=== PATIENT | male | born 1990 | race Caucasian/White ===

== ENCOUNTER 2017-11-14 10:19 | Emergency (ER) | payer OTHER, SELFPAY ==
[2017-11-14 10:21] VITALS: BP 142/95; PULSE 69; RESP 16; TEMP 36.3; O2SAT 100; BMI 35.9
--- NOTE | 2017-11-14 10:42 | CT_ITS ---
STUDY: CT ABDOMEN AND PELVIS WITH CONTRAST REASON FOR EXAM: Male, 27 years old. Epigastric abdomen pain radiating to left lower quadrant on several weeks. Hematemesis. RADIATION DOSAGE (If Supplied By Facility): CTDIvol = ( 16.77 ) mGy, DLP = ( 1292.11 ) mGycm TECHNIQUE: Transaxial images were obtained from the dome of the diaphragm to the symphysis pubis without oral contrast. 100 ml of Isovue 300 contrast was administered. Sagittal and coronal images were reconstructed. Individualized dose optimization techniques were used for this CT. COMPARISON: None. FINDINGS: The visualized lung bases are unremarkable. The visualized portions of the heart are within normal limits. Normal liver. Normal gallbladder and extrahepatic biliary system. Normal spleen. Normal pancreas. Normal bilateral adrenal glands. Normal right kidney. Normal left kidney. Normal visualized stomach. Normal small intestine. Multiple root of mesentery lymph nodes are evident for example on sequence 2, image 68. Normal colon. There is non-visualization of the appendix. There is no free fluid. There is no free air. Normal abdominal aorta. Normal inferior vena cava. Normal retroperitoneum. Normal urinary bladder. Normal abdominal wall. Normal osseous structures. CT/Abdomen/Pelvis WITH Contrast IMPRESSION: Multiple scattered mesenteric lymph nodes may represent mesenteric adenitis. Please note that early lymphoproliferative disorder can also present in this fashion. Therefore, recommend follow-up to document stability or resolution. Electronically Signed: Jose Cancino MD at 12:47 EDT , Service support ,
[2017-11-14 10:49] LABS: Absolute Lymphocyte Count 1.68 X10^3/ul (0.83-4.51); Absolute Neutrophil Count 2.4 X10^3/uL (2.0-7.7); Basophil# 0.01 X10^3/uL; Basophil% 0.2 % (0-1); Eosinophil# 0.08 X10^3/uL; Eosinophils% 1.7 % (0-5); Hematocrit 43.5 % (40-54); Hemoglobin 14.3 g/dl (13.0-16.5); Lymphocyte # 1.68 X10^3/ul (4.0); Lymphocyte % 35.7 % (19-41); Mean Corp Hgb Conc 32.9 g/gl (32-36); Mean Corpuscular Volume 88.2 fL (80-94); Mean Platelet Vol. 10.5 fl (6.2-12.0); Monocyte# 0.54 X10^3/uL; Monocyte% 11.5 % (0-10); Neutrophil # 2.39 X10^3/uL (2.7-7.7); Neutrophil % 50.9 % (47-70); Platelet Count 190 K/mm3 (150-450); RBC Distribution Width CV 12.7 % (11.6-14.6); RBC Distribution Width SD 40.3 fl (35.1-43.9); Red Blood Count 4.93 M/mm3 (4.6-6.2); White Blood Count 4.7 K/mm3 (4.4-11.0)
[2017-11-14 10:50] LABS: POSITIVE COUNT NO; POSITIVE DIFFERENTIAL NO; POSITIVE MORPHOLOGY NO
[2017-11-14 11:03] LABS: ALB/GLOB Ratio 1.1 RATIO (0.9-2.4); AST(SGOT) 27 U/L (15-37); Alanine Aminotransfer ALT/SGPT 44 U/L (16-61); Albumin, Serum 3.7 g/dL (3.2-5.0); Alkaline Phosphatase 53 U/L (45-117); Anion Gap 4 (5-15); BUN 9 mg/dL (7-18); BUN/Creat Ratio 9.9 RATIO (10-20); Calcium,Total 8.6 mg/dL (8.5-10.1); Chloride 104 mmol/L (98-107); Creatinine, Serum 0.91 mg/dL (0.70-1.30); EST Glomerular Filtration Rate 105 mL/min (>60); Est Glom Filt Rate - Afr Amer 127 mL/min (>60); Estimated Creatinine Clearance 124.79 ml/min; Globulin 3.3 g/dL (2.2-4.2); Glucose 87 mg/dL (74-106); Lipase 98 U/L (73-393); Potassium 3.9 mmol/L (3.5-5.1); Sodium Level 138 mmol/L (136-145)
[2017-11-14] MEDS: 0.9% Normal Saline 1,000 ML 125 ML IV (11:04)
[2017-11-14 11:23] LABS: Bacteria 0 SEEN /hpf (None Seen); Mucous, Urine 0 SEEN /hpf (<or=2+); Red Blood Cells-Urine 0 SEEN /hpf (0-5); Squamous Epithelial Cells - UA 0 SEEN /hpf (0-5)
[2017-11-14 11:24] LABS: Color, Urine Yellow (Yellow); Glucose, Dipstick Normal (Normal); Ketone-Dipstick Negative (Negative); Leukocyte Esterase-Dipstick 25 /ul (Negative); Nitrite-Dipstick Negative (Negative); Occult Blood-Urine Negative /ul (Negative); Protein-Dipstick Negative (Negative); Urine Bilirubin Dipstick Negative (Negative); Urine Clarity Clear (Clear); Urine Urobilinogen Normal (Normal)
[2017-11-14 11:30] LABS: White Blood Cells 0-5 SEEN /hpf (0-5)
--- NOTE | 2017-11-14 13:06 | ED.DCSUM_ITS ---
- ER Visit Summary Date of Service: 11/14/17 Chief Complaint: [Abdominal pain presents with abdominal pain that started several weeks ago.] History of Present Illness: The patient is a 27 M [patient states that he has had upper abdominal pain since bending over at one point and feeling a pop in his upper abdomen. Patient several days later had an episode of emesis where he had bright red blood noted with it and it was associated with abdominal distention. Patient states that he had nausea but no vomiting. He denies any diarrhea. He denies any blood in his stool or black tarry stool. Patient states he has not had much of an appetite. 2 days ago patient noticed what looked like dark urine he was not sure if it was blood. Patient continues to have low-grade upper abdominal pain. Patient rates his pain a 4 out of 10.] Physical Examination: HEENT-PERRLA, EOMI. Cranial nerves II through XII grossly intact. TMs clear. Mucous membranes moist. No adenopathy. Cardiovascular-regular rate and rhythm without murmur or ectopy Lungs-clear to auscultation, chest wall stable without crepitus or subcu emphysema Abdomen-normoactive bowel sounds, soft. patient has some mild epigastric tenderness on palpation. There is no rebound, rigidity, or perineal signs. Extremities-intact ?4, normal range of motion, normal pulses, atraumatic[] Test Results: [CBC with differential obtained showed a white count of 4.7, hemoglobin 14, hematocrit 43.5, platelets 190. Chemistries were normal. LFTs were normal. Lipase was 98. Urinalysis was normal. CT scan with IV and p.o. contrast showed scattered mesenteric lymph nodes which may represent mesenteric adenitis but they could not rule out a early lymphoproliferative disorder and recommended follow-up exam to document stability.] Emergency Department Course and Treatment: [I discussed all findings with the patient. Patient will be referred to Dr. Jeffrey Handley who is on-call for general surgery for follow-up. Patient will be started on Prevacid empirically] Treatment Plan: [Prevacid daily Disposition: [Discharged to home in stable condition. Patient advised to return if worsening pain, fever, vomiting, or condition should worsen in any way.] Impression: [Abdominal pain-etiology uncertain] This note was generated with [employer] software. It may contain incorrect words, spelling, and punctuation that were not noted in review of the chart prior to signing ED Disposition - Plan for ED Patient: Chief Complaint: Abd Pain Referrals: Kraig Cowan MD [Primary Care Provider] -
--- NOTE | 2017-11-14 13:07 | ED.DEP ---
ED Disposition - Plan for ED Patient: Chief Complaint: Abd Pain Instructions: ED Abdominal Pain Unkn Cause Prescriptions: Lansoprazole [Prevacid] 30 mg PO DAILY #30 cap Referrals: Kraig Cowan MD [Primary Care Provider] - Jeffrey Handley MD [STAFF PHYSICIAN] - 3-5 Days
--- NOTE | 2017-11-14 13:08 | ED.DEP ---
ED Disposition - Plan for ED Patient: Chief Complaint: Abd Pain Instructions: ED Abdominal Pain Unkn Cause Prescriptions: Lansoprazole [Prevacid] 30 mg PO DAILY #30 cap Referrals: Jeffrey Handley MD [STAFF PHYSICIAN] - 3-5 Days Kraig Cowan MD [Primary Care Provider] -
== END 2017-11-14 13:25 | disposition home or self-care (01) ==
PROVIDERS: Emergency Provider Emergency Medicine; Family Provider Family Medicine; PCP Family Medicine
DX: R10.13 Epigastric pain (principal)
CPT/HCPCS: 74177; 80053; 81001; 83690; 85025; 96360; 96361; 99283; J7030; Q9967; A4216

== ENCOUNTER → 2018-06-01 07:28 | Outpatient (CLI) | payer SELFPAY ==
--- NOTE | 2018-06-01 07:35 | CT_ITS ---
STUDY: CT ABDOMEN AND PELVIS WITH CONTRAST REASON FOR EXAM: Male, 28 years old. History of mesenteric adenitis. RADIATION DOSAGE (If Supplied By Facility): CTDIvol = ( 18.46 ) mGy, DLP = ( 1305.49 ) mGycm TECHNIQUE: Transaxial images were obtained from the dome of the diaphragm to the symphysis pubis with oral contrast. 100CC ml of Isovue 300 contrast was administered. Sagittal and coronal images were reconstructed. Individualized dose optimization techniques were used for this CT. COMPARISON: Comparison is made with prior examination dated November 14, 2017. FINDINGS: The visualized lung bases are unremarkable. The visualized portions of the heart are within normal limits. Normal liver. Normal gallbladder and extrahepatic biliary system. Normal spleen. Normal pancreas. Normal bilateral adrenal glands. Normal right kidney. Normal left kidney. There is a small hiatal hernia. Normal small intestine. Normal colon. The patient is status post appendectomy. Tiny lymph nodes are seen in the mesentery in the right lower quadrant. This is unchanged. Normal abdominal aorta. Normal inferior vena cava. There is borderline retroperitoneal lymphadenopathy with enlarged nodes no greater than 10mm in the short axis diameter. Normal urinary bladder. There is a small umbilical hernia containing fat. Normal osseous structures. CT/Abdomen/Pelvis WITH Contrast IMPRESSION: Stable examination. Small retroperitoneal lymph nodes as well as small lymph nodes in the mesentery in the right lower quadrant. Electronically Signed: Emery Giron MD at 9:56 EST Tel [phone], Service support ,
== END ==
PROVIDERS: Family Provider Family Medicine; PCP Family Medicine; Referring Provider Family Medicine; Visit Provider Family Medicine
DX: R10.10 Upper abdominal pain, unspecified (principal)
CPT/HCPCS: 74177; Q9967